=== PATIENT | male | born 1955 | race Two or more races ===

== ENCOUNTER 2022-08-14 09:57 | Day surgery (SDC) | payer OTHER ==
[~2022-08-14] VITALS: Ht 180.3 cm; Wt 97.5 kg
[~2022-08-14 09:57] MED LIST: ALPH100C8 PO; ASCO500T11 PO; ASPI1TAB20 PO; ATEN-60 PO; CHRO1TAB8 PO; CINN500T PO; FENO134C PO; GABA300C10 PO; INS7030I SC; MELA3TAB27 PO; MULT-908 OR; TAMS0.4C36 PO
[2022-08-14] MEDS ORDERED: fentaNYL CITRATE 100 MCG/2 ML VL ONE (10:39)
[2022-08-14] MEDS ORDERED: PROPOFOL 10 MG/ML 20 ML IV ONE (10:39)
[2022-08-14] MEDS ORDERED: SODIUM CHLORIDE LOCK 10 ML ONE (10:39)
[2022-08-14] MEDS ORDERED: DexAMETHasone SOD PHOS 10MG/1ML VIAL INJ ONE (10:39)
[2022-08-14] MEDS ORDERED: MIDAZOLAM HCL 2MG/2ML 2ml VIAL (1mg/ml) ONE (10:39)
[2022-08-14] MEDS ORDERED: ONDANSETRON HCL 4 MG/2 ML VIAL ONE (10:39)
[2022-08-14] MEDS ORDERED: METOCLOPRAMIDE HCL 5MG/ml INJ 2ml VIAL IV PRN (11:00)
[2022-08-14] MEDS ORDERED: MORPHINE SULFATE 4 MG/ML SYR/VIAL IV PRN (11:00)
[2022-08-14] MEDS ORDERED: HYDROmorphone HCL 2 MG/ML VL/or syr IV PRN ×2 (11:00)
[2022-08-14] MEDS ORDERED: LIDOCAINE 1% (LOCAL ANESTH.) PF 5ml SDV ONE ×2 (11:08→11:31)
[2022-08-14] MEDS ORDERED: BUPIVACAINE 0.5% P/F INJ 10 ML VIAL ONE (11:08)
[2022-08-14] MEDS ORDERED: DexAMETHasone SOD PHOS 4 MG/1ML SDV INJ ONE (11:08)
[2022-08-14] MEDS ORDERED: ceFAZolin 1GM/50ML 100 ML IV ONE (11:10)
[2022-08-14 12:22] VITALS: BP 110/65
== END 2022-08-14 12:35 | disposition home or self-care (01) ==
LOC: SUR 09:57
PROVIDERS: ATTEND Podiatrist Foot & Ankle Surgery
DX: M77.42 Metatarsalgia, left foot (principal); I10 Essential (primary) hypertension; L97.529 Non-pressure chronic ulcer of other part of left foot with unspecified severity; E11.9 Type 2 diabetes mellitus without complications; M19.90 Unspecified osteoarthritis, unspecified site; Z79.899 Other long term (current) drug therapy; Z79.84 Long term (current) use of oral hypoglycemic drugs; Z20.822 Contact with and (suspected) exposure to COVID-19
CPT/HCPCS: 28308; 73620; 76000; 82962; C1713; J0690; J1100; J2405; J2704; J3490; U0003; J2250

== ENCOUNTER 2023-04-23 09:01 | Day surgery (SDC) | payer OTHER ==
[~2023-04-23] VITALS: Ht 180.3 cm; Wt 101.2 kg
[~2023-04-23 09:01] MED LIST changes: -ALPH100C8 PO; +ALPH1CAP PO; -FENO134C PO; +FENO134C19 PO; +GABA-1250 PO; -GABA300C10 PO; +PATI1POW3 PO
[2023-04-23] MEDS ORDERED: LIDOCAINE 1% HCL (LOCAL ANESTH.) INJ 20ML MDV ONE (10:08)
[2023-04-23] MEDS ORDERED: BUPIVACAINE 0.5% P/F INJ 10 ML VIAL ONE (10:09)
[2023-04-23] MEDS ORDERED: DexAMETHasone SOD PHOS 4 MG/1ML SDV INJ ONE (10:09)
[2023-04-23] MEDS ORDERED: MIDAZOLAM HCL 2MG/2ML 2ml VIAL (1mg/ml) ONE (10:26)
[2023-04-23] MEDS ORDERED: fentaNYL CITRATE 100 MCG/2 ML VL ONE (10:26)
[2023-04-23] MEDS ORDERED: ONDANSETRON HCL 4 MG/2 ML VIAL ONE (10:56)
[2023-04-23] MEDS ORDERED: LIDOCAINE 2% (LOCAL ANESTH.) PF 5ml SDV ONE (10:57)
[2023-04-23 11:06] VITALS: TEMP 97.1; O2SAT 100
[2023-04-23] MEDS ORDERED: PROPOFOL 10 MG/ML 20 ML IV ONE (11:06)
[2023-04-23] MEDS ORDERED: HYDROmorphone HCL 2 MG/ML VL/or syr IV PRN (11:30)
[2023-04-23] MEDS ORDERED: ONDANSETRON HCL 4 MG/2 ML VIAL IV PRN (11:30)
[2023-04-23 11:45] VITALS: BP 129/56; PULSE 63; RESP 15; O2SAT 95
== END 2023-04-23 11:56 | disposition home or self-care (01) ==
LOC: SUR 09:01
PROVIDERS: ATTEND Podiatrist Foot & Ankle Surgery
DX: E11.69 Type 2 diabetes mellitus with other specified complication (principal); M86.172 Other acute osteomyelitis, left ankle and foot; Z79.84 Long term (current) use of oral hypoglycemic drugs
CPT/HCPCS: 28825; 73620; 82962; 87070; 87075; 87205; J1100; J2001; J2250; J2405; J2704; J3010; J3490; L3260